=== PATIENT | male | born 1950 | race Caucasian/White ===

== ENCOUNTER → 2016-12-07 | Outpatient (CLI) | payer MEDICARE ==
[~2016-12-07] MED LIST: AMARYL4 MG PO; ATENOLOL25 MG PO; ISORDIL PO; MELATONIN3 M1 PO; METFORMIN750 M1 PO; MICARDIS HCT 121 TA2 PO; NIASPAN500 MG PO; OMEPRAZOLE D/R20 MG PO; ZETIA10 MG PO; [UNRECOGNIZED DRUG - OTHER] PO
== END | disposition home or self-care (01) ==
LOC: US 09:11
DX: E04.1 Nontoxic single thyroid nodule (principal); Z80.8 Family history of malignant neoplasm of other organs or systems

== ENCOUNTER → 2017-03-17 | Outpatient (CLI) | payer MEDICARE ==
[2017-03-17 11:43] LABS: BUN 17 mg/dl (7-24); CHLORIDE 103 mmol/L (98-107); CHOLESTEROL 159 mg/dL (<200); CREATININE 1.32 mg/dL (0.70-1.30); POTASSIUM 3.8 mmol/L (3.5-5.1); SODIUM 138 mmol/L (136-145); TRIGLYCERIDES 105 mg/dl (<150); VLDL CHOLESTEROL 21 mg/dL (6-40)
[2017-03-17 11:51] LABS: CPK 54 U/L (39-308); FREE T4 1.24 ng/dl (0.76-1.46); HDL CHOLESTEROL 57 mg/dl (40-60); LDL CHOLESTEROL 81 mg/dL (9-159); THYROID STIM HORMONE (HS) 0.127 uIU/ml (0.358-4.75)
== END | disposition home or self-care (01) ==
LOC: LAB 10:57
PROVIDERS: Family Medicine
DX: E78.5 Hyperlipidemia, unspecified (principal); E04.9 Nontoxic goiter, unspecified; E11.9 Type 2 diabetes mellitus without complications

== ENCOUNTER → 2017-09-09 | Outpatient (CLI) | payer MEDICARE ==
[2017-09-09 12:34] LABS: CREATININE 1.46 mg/dL (0.70-1.30); POTASSIUM 3.7 mmol/L (3.5-5.1); THYROXINE (T4) TOTAL 9.1 ug/dl (4.5-12.1)
[2017-09-09 12:44] LABS: THYROID STIM HORMONE (HS) 0.065 uIU/ml (0.358-4.75)
== END | disposition home or self-care (01) ==
LOC: LAB 11:24
PROVIDERS: Family Medicine
DX: E78.5 Hyperlipidemia, unspecified (principal); E04.1 Nontoxic single thyroid nodule; E11.9 Type 2 diabetes mellitus without complications

== ENCOUNTER → 2018-01-04 | Outpatient (CLI) | payer MEDICARE ==
[2018-01-04 12:23] LABS: FREE T4 1.34 ng/dl (0.76-1.46); THYROID STIM HORMONE (HS) 0.031 uIU/ml (0.358-4.75)
== END | disposition home or self-care (01) ==
LOC: LAB 11:12
PROVIDERS: Otolaryngology Plastic Surgery within the Head & Neck
DX: E04.9 Nontoxic goiter, unspecified (principal)

== ENCOUNTER → 2018-09-12 | Outpatient (CLI) | payer MEDICARE ==
[2018-09-12 12:17] LABS: BUN 19 mg/dl (7-24); CHLORIDE 103 mmol/L (98-107); CHOLESTEROL 133 mg/dL (<200); CREATININE 1.38 mg/dL (0.70-1.30); FREE T4 1.43 ng/dl (0.76-1.46); HDL CHOLESTEROL 54 mg/dl (40-60); LDL CHOLESTEROL 63 mg/dL (9-159); POTASSIUM 4.1 mmol/L (3.5-5.1); SODIUM 140 mmol/L (136-145); TRIGLYCERIDES 81 mg/dl (<150); VLDL CHOLESTEROL 16 mg/dL (6-40)
[2018-09-12 12:27] LABS: THYROID STIM HORMONE (HS) < 0.005 uIU/ml (0.358-4.75)
== END | disposition home or self-care (01) ==
LOC: LAB 09:51
PROVIDERS: Family Medicine
DX: E11.9 Type 2 diabetes mellitus without complications (principal); E04.1 Nontoxic single thyroid nodule; E78.5 Hyperlipidemia, unspecified

== ENCOUNTER → 2018-12-06 | Outpatient (CLI) | payer MEDICARE | END | disposition home or self-care (01) | LOC: US 11-06 07:30 | DX: E04.2 Nontoxic multinodular goiter (principal) ==

== ENCOUNTER → 2019-03-20 | Outpatient (CLI) | payer MEDICARE ==
[~2019-03-20] MED LIST changes: -AMARYL4 MG PO; +ATENOLOL100 M1 PO; -ATENOLOL25 MG PO; +Amaryl2 MG PO; +DICYCLOMINE HCL10 MG PO; +ISOSORBIDE30 MG PO; +METFORMIN HCL500 M2 PO; -METFORMIN750 M1 PO; +NEURONTIN300 MG PO; +NIASPAN1000 MG PO; -NIASPAN500 MG PO; -OMEPRAZOLE D/R20 MG PO; +OMEPRAZOLE40 MG PO
--- NOTE | 2019-03-20 07:10 | NUR ---
INFORMED CONSENT OBTAINED FOR LEXISCAN NUCLEAR STRESS TEST WITH DR. BRADFORD. RESTING EKG ATRIAL FIB WITH A RESTING HR OF 96 WITH BP OF 122/74. NEW ONSET AND DR. BRADFORD INSTRUCTED PATIENT TO START TAKING ASPIRIN 325 MG DAILY. LUNGS CLEAR WITH SPO2 OF 98% ON ROOM AIR. PT COMPLETED A 1:00 LEXISCAN PROTOCOL RECEIVING LEXISCAN 0.4 MG IV OVER 10 SECONDS. HAD A PEAK HR OF 108 WITH BP OF 100/50. HAD C/O HEADACHE AND CHEST DISCOMFORT. HAD NO ST CHANGES. AT 3:00 RECOVERY CHEST DISCOMFORT RELIEVED AND BP 100/50. AT 4:00 RECOVERY HAD C/O BLURRED VISION AND FEELING LIGHTHEADED. PLACED IN RECLINING POSITION AND BP 80/40. DRINKING DIET COLA AND WATER. BP RECHECK 70/50 AND PALE WITH SKIN COOL AND SLIGHTLY DIAPHORETIC. PLACED IN SUPINE POSITION AND BP RECHECK 76/40 AND COLOR IMPROVING WITH LESS BLURRED VISION AND LIGHTHEADEDNESS. KEPT PATIEND IN SUPINE POSITION THROUGHOUT 19:00 RECOVERY AND BP KEPT IMPROVING. LAST RECOVERY HR OF 94 WITH BP OF 94/64. AFTER RECOVERY KEPT PT IN DEPARTMENT IN SEATED POSITION WITH LEGS ELEVATED. DENIES ANY DISCOMFORT. POSITION. IN SUPINE
--- NOTE | 2019-03-20 07:45 | NUR ---
IN SEATED POSITION EATING. DENIES ANY DISCOMFORT. BP 118/80.
--- NOTE | 2019-03-20 07:55 | NUR ---
BP RECHECK 142/84. DENIES ANY DISCOMFORTS. ORDER RECEIVED BY DR. BRADFORD TO HAVE ECHO COMPLETED TODAY.
--- NOTE | 2019-03-20 08:30 | NUR ---
ECHOCARDIOGRAM COMPLETED. OFFICE CALLED AND SCHEDULED OFFICE APPOINTMENT WITH DR. BRADFORD ON 03/27/19. EMPHASIZED TAKING ASPIRIN 325 MG DAILY. PT VERBALIZED UNDERSTANDING. TO NUCLEAR MEDICINE IN STABLE CONDITION FOR SCANNING.
== END | disposition home or self-care (01) ==
LOC: CARD 00:33
DX: I07.1 Rheumatic tricuspid insufficiency (principal); I20.9 Angina pectoris, unspecified; R53.81 Other malaise

== ENCOUNTER → 2019-05-09 | Outpatient (CLI) | payer MEDICARE ==
[2019-05-09 11:18] LABS: BASO # 0.1 10*3/uL (0.0-0.1); BASO % 0.7 % (0.0-1.0); EOS # 0.4 10*3/uL (0.0-0.4); EOS % 3.9 % (1.0-4.0); HEMATOCRIT 44.3 % (42.0-52.0); HEMOGLOBIN 14.4 g/dl (14.0-18.0); LYMPH # 2.9 10*3/uL (1.3-4.4); LYMPH % 27.5 % (27.0-41.0); MEAN CELL VOLUME 84.7 fl (80.0-94.0); MEAN CORPUSCULAR HGB 27.5 pg (27.0-31.0); MEAN CORPUSCULAR HGB CONC 32.5 g/dl (33.0-37.0); MEAN PLATELET VOLUME 10.8 fl (9.6-12.3); MONO # 0.8 10*3/uL (0.1-1.0); MONO % 7.4 % (3.0-9.0); NEUT # 6.4 10*3/uL (2.3-7.9); NEUT % 60.1 % (47.0-73.0); PLATELET COUNT AUTOMATED 263 10*3/uL (130-400); RED BLOOD COUNT 5.23 10*6/uL (4.50-5.90); RED CELL DISTRI WIDTH 14.2 % (0-14.5); WHITE BLOOD COUNT 10.6 10*3/uL (4.8-10.8)
[2019-05-09 11:40] LABS: ALBUMIN 3.8 gm/dl (3.1-4.5); CREATININE 1.63 mg/dL (0.70-1.30); POTASSIUM 3.9 mmol/L (3.5-5.1); TOTAL PROTEIN 7.3 gm/dL (6.4-8.2)
[2019-05-09 11:47] LABS: THYROID STIM HORMONE (HS) 0.012 uIU/ml (0.358-4.75)
[2019-05-09 11:57] LABS: BILIRUBIN NEGATIVE (NEGATIVE); BLOOD NEGATIVE (NEGATIVE); CLARITY CLEAR (CLEAR); COLOR YELLOW (YELLOW); EPITHELIAL CELLS 0-2; GLUCOSE NEGATIVE (NEGATIVE); KETONE NEGATIVE (NEGATIVE); LEUKO ESTERASE NEGATIVE (NEGATIVE); MUCOUS 1+; NITRITE NEGATIVE (NEGATIVE); RBC 0-2 rbc/hpf (0-2); UROBILINOGEN 0.2 E.U./dl (0.2-1.0); WBC 0-2 wbc/hpf (0-5)
[2019-05-10 10:06] LABS: CREATININE,URINE 229.2 mg/dL (Not Estab.)
== END | disposition home or self-care (01) ==
LOC: LAB 10:32
PROVIDERS: Family Medicine
DX: E11.9 Type 2 diabetes mellitus without complications (principal); I10 Essential (primary) hypertension; E05.10 Thyrotoxicosis with toxic single thyroid nodule without thyrotoxic crisis or storm; I25.10 Atherosclerotic heart disease of native coronary artery without angina pectoris

== ENCOUNTER 2019-10-28 14:41 | Emergency (ER) | payer MEDICARE ==
[~2019-10-28] VITALS: Ht 157.4 cm; Wt 90.7 kg
[2019-10-28 15:18] LABS: BASO # 0.1 10*3/uL (0.0-0.1); BASO % 0.7 % (0.0-1.0); EOS # 0.5 10*3/uL (0.0-0.4); EOS % 4.9 % (1.0-4.0); HEMATOCRIT 38.1 % (42.0-52.0); LYMPH # 3.1 10*3/uL (1.3-4.4); LYMPH % 31.8 % (27.0-41.0); MEAN CELL VOLUME 83.2 fl (80.0-94.0); MEAN CORPUSCULAR HGB 27.1 pg (27.0-31.0); MEAN CORPUSCULAR HGB CONC 32.5 g/dl (33.0-37.0); MEAN PLATELET VOLUME 9.6 fl (9.6-12.3); MONO # 1.1 10*3/uL (0.1-1.0); NEUT % 51.4 % (47.0-73.0); PLATELET COUNT AUTOMATED 263 10*3/uL (130-400); RED BLOOD COUNT 4.58 10*6/uL (4.50-5.90); RED CELL DISTRI WIDTH 13.9 % (0-14.5); WHITE BLOOD COUNT 9.7 10*3/uL (4.8-10.8)
[2019-10-28 15:28] LABS: INTERNATIONAL NORM RATIO 1.5 (2.0-3.5)
[2019-10-28 15:34] LABS: ALBUMIN 3.7 gm/dl (3.1-4.5); CREATININE 2.01 mg/dL (0.70-1.30); TOTAL PROTEIN 7.4 gm/dL (6.4-8.2)
[2019-10-28] MEDS ORDERED: KENALOG 0.5% CR15 GM T (15:47)
== END 2019-10-28 15:58 | disposition home or self-care (01) ==
LOC: ED 14:41
PROVIDERS: Physician Assistant
DX: R21 Rash and other nonspecific skin eruption (principal); R79.1 Abnormal coagulation profile; I10 Essential (primary) hypertension; E11.9 Type 2 diabetes mellitus without complications; I25.2 Old myocardial infarction; E78.00 Pure hypercholesterolemia, unspecified; M10.9 Gout, unspecified; Z79.899 Other long term (current) drug therapy

== ENCOUNTER 2020-07-25 12:51 | Emergency (ER) | payer MEDICARE ==
[~2020-07-25] VITALS: Ht 157.4 cm; Wt 93.0 kg
[~2020-07-25 12:51] MED LIST changes: +ASPIRIN81 M1 PO; +ISOSORBIDE DINI30 MG PO; -ISOSORBIDE30 MG PO; +KENALOG 0.5% CR15 GM T; +XARELTO10 MG PO
== END 2020-07-25 13:30 | disposition home or self-care (01) ==
LOC: ED 12:51
DX: S30.1XXA Contusion of abdominal wall, initial encounter (principal); Z79.899 Other long term (current) drug therapy; Z79.84 Long term (current) use of oral hypoglycemic drugs; Z79.82 Long term (current) use of aspirin; Z98.890 Other specified postprocedural states; X58.XXXA Exposure to other specified factors, initial encounter; Y93.89 Activity, other specified; Y92.89 Other specified places as the place of occurrence of the external cause; Y99.8 Other external cause status

== ENCOUNTER → 2020-08-05 | Outpatient (CLI) | payer MEDICARE ==
[2020-08-05 11:53] LABS: BUN 17 mg/dl (7-24); CHLORIDE 99 mmol/L (98-107); CHOLESTEROL 99 mg/dL (<200); CREATININE 1.48 mg/dL (0.70-1.30); POTASSIUM 4.6 mmol/L (3.5-5.1); SODIUM 134 mmol/L (136-145); TRIGLYCERIDES 71 mg/dl (<150); VLDL CHOLESTEROL 14 mg/dL (6-40)
[2020-08-05 12:01] LABS: HDL CHOLESTEROL 51 mg/dl (40-60); LDL CHOLESTEROL 34 mg/dL (9-159)
[2020-08-05 12:02] LABS: THYROID STIM HORMONE (HS) < 0.005 uIU/ml (0.358-4.75)
== END | disposition home or self-care (01) ==
LOC: LAB 10:45
PROVIDERS: ATTEND Family Medicine
DX: E11.9 Type 2 diabetes mellitus without complications (principal); I10 Essential (primary) hypertension; E78.2 Mixed hyperlipidemia

== ENCOUNTER 2020-10-09 12:20 | Inpatient (IN) | payer MEDICARE ==
[~2020-10-09] VITALS: Ht 157.5 cm; Wt 97.1 kg
[~2020-10-09 12:20] MED LIST changes: -ISOSORBIDE DINI30 MG PO; +Imdur SA60 MG PO
[2020-10-09 12:30] VITALS: BP 170/81
[2020-10-09 12:33] LABS: BASO # 0.1 10*3/uL (0.0-0.1); BASO % 0.5 % (0.0-1.0); EOS # 0.2 10*3/uL (0.0-0.4); EOS % 1.7 % (1.0-4.0); HEMATOCRIT 34.6 % (42.0-52.0); LYMPH # 1.7 10*3/uL (1.3-4.4); LYMPH % 14.3 % (27.0-41.0); MEAN CORPUSCULAR HGB 25.6 pg (27.0-31.0); MEAN CORPUSCULAR HGB CONC 31.2 g/dl (33.0-37.0); MEAN PLATELET VOLUME 10.6 fl (9.6-12.3); MONO # 0.8 10*3/uL (0.1-1.0); MONO % 6.7 % (3.0-9.0); NEUT # 9.3 10*3/uL (2.3-7.9); NEUT % 76.4 % (47.0-73.0); PLATELET COUNT AUTOMATED 273 10*3/uL (130-400); RED BLOOD COUNT 4.22 10*6/uL (4.50-5.90); RED CELL DISTRI WIDTH 14.9 % (0-14.5); WHITE BLOOD COUNT 12.2 10*3/uL (4.8-10.8)
[2020-10-09 12:48] LABS: ALBUMIN 3.4 gm/dl (3.1-4.5); ALKALINE PHOSPHATASE 69 U/L (45-117); BUN 19 mg/dl (7-24); CHLORIDE 102 mmol/L (98-107); CREATININE 1.51 mg/dL (0.70-1.30); POTASSIUM 4.2 mmol/L (3.5-5.1); SGOT/AST 16 IU/L (3-35); SGPT/ALT 26 U/L (12-78); SODIUM 133 mmol/L (136-145); TOTAL PROTEIN 6.9 gm/dL (6.4-8.2)
[2020-10-09 12:53] LABS: TROPONIN I < 0.015 ng/ml (<0.045)
[2020-10-09 13:46] VITALS: BP 138/72
[2020-10-09 16:20] VITALS: BP 187/94
[2020-10-09] MEDS ORDERED: PLAVIX75 M1 PO (18:06)
[2020-10-09] MEDS ORDERED: LIPITOR20 MG PO (18:07)
[2020-10-09] MEDS ORDERED: Amaryl2 MG PO (18:07)
[2020-10-09] MEDS ORDERED: PROVENTIL HFA6.7 GM INH (18:10)
[2020-10-09] MEDS ORDERED: ALLERGY RELIEF10 M2 PO (18:11)
[2020-10-09] MEDS ORDERED: NITROSTAT0.4 MG SL (18:11)
[2020-10-09 18:40] VITALS: BP 174/80
[2020-10-09 20:00] VITALS: BP 148/95
[2020-10-10] VITALS: BP 178/92
[2020-10-10 06:35] LABS: BASO # 0.1 10*3/uL (0.0-0.1); BASO % 0.5 % (0.0-1.0); EOS # 0.3 10*3/uL (0.0-0.4); EOS % 2.9 % (1.0-4.0); HEMATOCRIT 34.1 % (42.0-52.0); LYMPH # 1.8 10*3/uL (1.3-4.4); LYMPH % 16.6 % (27.0-41.0); MEAN CELL VOLUME 79.7 fl (80.0-94.0); MEAN CORPUSCULAR HGB 25.2 pg (27.0-31.0); MEAN CORPUSCULAR HGB CONC 31.7 g/dl (33.0-37.0); MEAN PLATELET VOLUME 10.9 fl (9.6-12.3); MONO # 0.8 10*3/uL (0.1-1.0); MONO % 6.9 % (3.0-9.0); NEUT % 72.6 % (47.0-73.0); PLATELET COUNT AUTOMATED 262 10*3/uL (130-400); RED BLOOD COUNT 4.28 10*6/uL (4.50-5.90); RED CELL DISTRI WIDTH 14.9 % (0-14.5)
[2020-10-10 07:03] LABS: ALBUMIN 3.3 gm/dl (3.1-4.5); BUN 19 mg/dl (7-24); CHLORIDE 103 mmol/L (98-107); CREATININE 1.27 mg/dL (0.70-1.30); POTASSIUM 3.7 mmol/L (3.5-5.1); SGOT/AST 15 IU/L (3-35); SGPT/ALT 24 U/L (12-78); SODIUM 135 mmol/L (136-145); TOTAL PROTEIN 6.8 gm/dL (6.4-8.2)
[2020-10-10 07:04] LABS: ALKALINE PHOSPHATASE 69 U/L (45-117)
[2020-10-10 11:45] VITALS: BP 158/70
== END 2020-10-10 13:57 | disposition home or self-care (01) | DRG 605 ==
LOC: ED 12:20 → EDHOLD 15:04 → 5E 15:04 → EDHOLD 15:04 → 5E 17:02
PROVIDERS: Internal Medicine; Student in an Organized Health Care Education/Training Program; ADMIT Internal Medicine; ATTEND Internal Medicine
DX: S20.211A Contusion of right front wall of thorax, initial encounter (principal); E87.1 Hypo-osmolality and hyponatremia; I48.21 Permanent atrial fibrillation; I13.0 Hypertensive heart and chronic kidney disease with heart failure and stage 1 through stage 4 chronic kidney disease, or unspecified chronic kidney disease; I50.32 Chronic diastolic (congestive) heart failure; K58.9 Irritable bowel syndrome, unspecified; E11.22 Type 2 diabetes mellitus with diabetic chronic kidney disease; N18.31 Chronic kidney disease, stage 3a; R07.89 Other chest pain; D64.9 Anemia, unspecified; D72.829 Elevated white blood cell count, unspecified; E78.5 Hyperlipidemia, unspecified; E11.65 Type 2 diabetes mellitus with hyperglycemia; E11.40 Type 2 diabetes mellitus with diabetic neuropathy, unspecified; K21.9 Gastro-esophageal reflux disease without esophagitis; I25.10 Atherosclerotic heart disease of native coronary artery without angina pectoris; I08.1 Rheumatic disorders of both mitral and tricuspid valves; I27.20 Pulmonary hypertension, unspecified; W01.0XXA Fall on same level from slipping, tripping and stumbling without subsequent striking against object, initial encounter; Y93.89 Activity, other specified; Y92.89 Other specified places as the place of occurrence of the external cause; Y99.8 Other external cause status; Z95.5 Presence of coronary angioplasty implant and graft; Z95.1 Presence of aortocoronary bypass graft; Z98.49 Cataract extraction status, unspecified eye; Z87.891 Personal history of nicotine dependence; Z82.49 Family history of ischemic heart disease and other diseases of the circulatory system; Z80.9 Family history of malignant neoplasm, unspecified; Z79.82 Long term (current) use of aspirin; Z79.899 Other long term (current) drug therapy; Z79.84 Long term (current) use of oral hypoglycemic drugs

== ENCOUNTER → 2021-04-28 | Outpatient (CLI) | payer MEDICARE ==
[~2021-04-28] MED LIST changes: +ALLERGY RELIEF10 M2 PO; +LIPITOR20 MG PO; +NITROSTAT0.4 MG SL; +PLAVIX75 M1 PO; +PROVENTIL HFA6.7 GM INH
[2021-04-28 10:26] LABS: BASO # 0.1 10*3/uL (0.0-0.1); BASO % 0.6 % (0.0-1.0); EOS # 0.3 10*3/uL (0.0-0.4); EOS % 2.6 % (1.0-4.0); LYMPH # 2.1 10*3/uL (1.3-4.4); LYMPH % 17.8 % (27.0-41.0); MEAN CORPUSCULAR HGB 23.6 pg (27.0-31.0); MEAN CORPUSCULAR HGB CONC 30.3 g/dl (33.0-37.0); MEAN PLATELET VOLUME 10.4 fl (9.6-12.3); MONO # 1.1 10*3/uL (0.1-1.0); MONO % 9.1 % (3.0-9.0); NEUT # 8.3 10*3/uL (2.3-7.9); NEUT % 69.5 % (47.0-73.0); PLATELET COUNT AUTOMATED 319 10*3/uL (130-400); RED CELL DISTRI WIDTH 17.8 % (0-14.5); WHITE BLOOD COUNT 11.9 10*3/uL (4.8-10.8)
[2021-04-28 10:40] LABS: POTASSIUM 4.2 mmol/L (3.5-5.1)
[2021-04-28 11:04] LABS: ALBUMIN 3.5 gm/dl (3.1-4.5); CREATININE 1.61 mg/dL (0.70-1.30); THYROID STIM HORMONE (HS) 0.056 uIU/ml (0.358-4.75)
== END | disposition home or self-care (01) ==
LOC: LAB 09:49
PROVIDERS: ATTEND Family Medicine
DX: I11.9 Hypertensive heart disease without heart failure (principal); I25.10 Atherosclerotic heart disease of native coronary artery without angina pectoris; R53.83 Other fatigue; E11.9 Type 2 diabetes mellitus without complications

== ENCOUNTER → 2021-05-27 | Outpatient (CLI) | payer MEDICARE ==
[2021-05-27 10:57] LABS: CREATININE 1.52 mg/dL (0.70-1.30)
== END | disposition home or self-care (01) ==
LOC: LAB 10:03
PROVIDERS: ATTEND Family Medicine
DX: I10 Essential (primary) hypertension (principal); E11.9 Type 2 diabetes mellitus without complications

== ENCOUNTER → 2021-09-10 | Outpatient (CLI) | payer MEDICARE ==
[2021-09-10 12:56] LABS: BASO % 0.4 % (0.0-1.0); EOS % 0.1 % (1.0-4.0); HEMATOCRIT 35.9 % (42.0-52.0); LYMPH # 0.9 10*3/uL (1.3-4.4); LYMPH % 11.2 % (27.0-41.0); MEAN CELL VOLUME 77.2 fl (80.0-94.0); MEAN CORPUSCULAR HGB 24.9 pg (27.0-31.0); MEAN CORPUSCULAR HGB CONC 32.3 g/dl (33.0-37.0); MEAN PLATELET VOLUME 10.2 fl (9.6-12.3); MONO # 0.7 10*3/uL (0.1-1.0); MONO % 8.3 % (3.0-9.0); NEUT # 6.7 10*3/uL (2.3-7.9); NEUT % 79.5 % (47.0-73.0); PLATELET COUNT AUTOMATED 260 10*3/uL (130-400); RED BLOOD COUNT 4.65 10*6/uL (4.50-5.90); RED CELL DISTRI WIDTH 17.5 % (0-14.5); WHITE BLOOD COUNT 8.4 10*3/uL (4.8-10.8)
[2021-09-10 13:13] LABS: CREATININE 1.67 mg/dL (0.70-1.30); POTASSIUM 4.1 mmol/L (3.5-5.1)
== END ==
LOC: LAB 12:03
PROVIDERS: ATTEND Family Medicine
DX: E11.9 Type 2 diabetes mellitus without complications (principal); I10 Essential (primary) hypertension; D50.9 Iron deficiency anemia, unspecified; R06.02 Shortness of breath; R05.9 Cough, unspecified

== ENCOUNTER → 2021-11-26 | Outpatient (CLI) | payer MEDICARE ==
[~2021-11-26] MED LIST changes: +ARNUITY ELLIP200 MCG INH; +FERROCITE324 MG PO; +MUCINEX ER600 MG PO; +PREDNISONE10 MG PO; +XARE20MG PO; +ZITHROMAX500 MG PO
== END | disposition home or self-care (01) ==
LOC: RESCLI 00:53
PROVIDERS: ATTEND Student in an Organized Health Care Education/Training Program
DX: J45.909 Unspecified asthma, uncomplicated (principal); I48.91 Unspecified atrial fibrillation; I13.0 Hypertensive heart and chronic kidney disease with heart failure and stage 1 through stage 4 chronic kidney disease, or unspecified chronic kidney disease; E78.5 Hyperlipidemia, unspecified; K21.9 Gastro-esophageal reflux disease without esophagitis; E11.22 Type 2 diabetes mellitus with diabetic chronic kidney disease; D50.9 Iron deficiency anemia, unspecified; I50.32 Chronic diastolic (congestive) heart failure; I25.810 Atherosclerosis of coronary artery bypass graft(s) without angina pectoris; J30.2 Other seasonal allergic rhinitis; G62.9 Polyneuropathy, unspecified; Z79.899 Other long term (current) drug therapy; Z79.01 Long term (current) use of anticoagulants

== ENCOUNTER → 2022-04-21 | Outpatient (CLI) | payer MEDICARE ==
[2022-04-21 12:53] LABS: BASO # 0.1 10*3/uL (0.0-0.1); BASO % 0.6 % (0.0-1.0); EOS # 0.2 10*3/uL (0.0-0.4); EOS % 1.8 % (1.0-4.0); HEMATOCRIT 47.1 % (42.0-52.0); LYMPH # 2.2 10*3/uL (1.3-4.4); LYMPH % 18.1 % (27.0-41.0); MEAN CELL VOLUME 84.9 fl (80.0-94.0); MEAN CORPUSCULAR HGB 27.7 pg (27.0-31.0); MEAN CORPUSCULAR HGB CONC 32.7 g/dl (33.0-37.0); MEAN PLATELET VOLUME 10.2 fl (9.6-12.3); NEUT # 8.5 10*3/uL (2.3-7.9); NEUT % 71.1 % (47.0-73.0); PLATELET COUNT AUTOMATED 298 10*3/uL (130-400); RED BLOOD COUNT 5.55 10*6/uL (4.50-5.90); RED CELL DISTRI WIDTH 13.5 % (0-14.5); WHITE BLOOD COUNT 11.9 10*3/uL (4.8-10.8)
[2022-04-21 13:13] LABS: BUN 19 mg/dl (9-23); CHLORIDE 100 mmol/L (98-107); CHOLESTEROL 102 mg/dL (<200); LDL CHOLESTEROL 49 mg/dL (9-159); POTASSIUM 3.7 mmol/L (3.4-5.1); THYROID STIM HORMONE (HS) 0.255 uIU/ml (0.550-4.780); TRIGLYCERIDES 83 mg/dl (<150)
== END | disposition home or self-care (01) ==
LOC: LAB 12:28
PROVIDERS: ATTEND Family Medicine
DX: I25.10 Atherosclerotic heart disease of native coronary artery without angina pectoris (principal); E78.2 Mixed hyperlipidemia; E11.9 Type 2 diabetes mellitus without complications; I10 Essential (primary) hypertension

== ENCOUNTER → 2022-10-05 | Outpatient (CLI) | payer MEDICARE | LOC: CARD 00:42 | PROVIDERS: ATTEND Internal Medicine Cardiovascular Disease | DX: R07.9 Chest pain, unspecified (principal) ==

== ENCOUNTER → 2022-11-25 | Outpatient (CLI) | payer MEDICARE | END | disposition home or self-care (01) | LOC: RESCLI 00:42 | PROVIDERS: ATTEND Internal Medicine | DX: I13.0 Hypertensive heart and chronic kidney disease with heart failure and stage 1 through stage 4 chronic kidney disease, or unspecified chronic kidney disease (principal); E11.22 Type 2 diabetes mellitus with diabetic chronic kidney disease; N18.32 Chronic kidney disease, stage 3b; I50.32 Chronic diastolic (congestive) heart failure; E78.5 Hyperlipidemia, unspecified; K21.9 Gastro-esophageal reflux disease without esophagitis; D50.9 Iron deficiency anemia, unspecified; I48.91 Unspecified atrial fibrillation; G47.33 Obstructive sleep apnea (adult) (pediatric); I25.810 Atherosclerosis of coronary artery bypass graft(s) without angina pectoris; J45.909 Unspecified asthma, uncomplicated; G62.9 Polyneuropathy, unspecified; Z87.891 Personal history of nicotine dependence; Z98.890 Other specified postprocedural states; Z79.899 Other long term (current) drug therapy ==

== ENCOUNTER → 2022-12-23 | Outpatient (CLI) | payer MEDICARE ==
[2022-12-23 13:47] LABS: ALKALINE PHOSPHATASE 92 U/L (46-116); BUN 17 mg/dl (9-23); CHLORIDE 101 mmol/L (98-107); CHOLESTEROL 101 mg/dL (<200); LDL CHOLESTEROL 43 mg/dL (9-159); POTASSIUM 4.6 mmol/L (3.4-5.1); SGPT/ALT 44 U/L (10-49); TOTAL PROTEIN 7.2 gm/dL (6.0-8.0); TRIGLYCERIDES 75 mg/dl (<150)
== END | disposition home or self-care (01) ==
LOC: LAB 12:50
PROVIDERS: ATTEND Family Medicine
DX: E11.9 Type 2 diabetes mellitus without complications (principal); R60.9 Edema, unspecified

== ENCOUNTER → 2023-04-26 | Outpatient (CLI) | payer MEDICARE ==
[2023-04-26 11:36] LABS: POTASSIUM 4.2 mmol/L (3.4-5.1); TOTAL PROTEIN 7.4 gm/dL (6.0-8.0)
== END | disposition home or self-care (01) ==
LOC: LAB 10:25
PROVIDERS: ATTEND Family Medicine
DX: E11.9 Type 2 diabetes mellitus without complications (principal); E78.2 Mixed hyperlipidemia; I48.91 Unspecified atrial fibrillation; R60.1 Generalized edema

== ENCOUNTER → 2023-06-16 | Outpatient (CLI) | payer MEDICARE | END | disposition home or self-care (01) | LOC: US 08:00 | PROVIDERS: ATTEND Family Medicine | DX: Z13.6 Encounter for screening for cardiovascular disorders (principal) ==

== ENCOUNTER → 2023-08-09 | Outpatient (CLI) | payer MEDICARE | LOC: LAB 08:22 | PROVIDERS: ATTEND Otolaryngology | DX: R22.1 Localized swelling, mass and lump, neck (principal) ==

== ENCOUNTER 2023-08-11 08:04 | Inpatient (IN) | payer MEDICARE ==
[~2023-08-11] VITALS: Ht 154.9 cm; Wt 89.8 kg
[2023-08-11] VITALS (7 sets, daily range): BP systolic 85–122; BP diastolic 51–79
[2023-08-11 08:27] LABS: BASO # 0.1 10*3/uL (0.0-0.1); BASO % 0.5 % (0.0-1.0); EOS # 0.3 10*3/uL (0.0-0.4); EOS % 2.5 % (1.0-4.0); HEMATOCRIT 41.1 % (42.0-52.0); LYMPH # 2.6 10*3/uL (1.3-4.4); LYMPH % 20.2 % (27.0-41.0); MEAN CELL VOLUME 92.2 fl (80.0-94.0); MEAN CORPUSCULAR HGB 29.1 pg (27.0-31.0); MEAN CORPUSCULAR HGB CONC 31.6 g/dl (33.0-37.0); MEAN PLATELET VOLUME 10.6 fl (9.6-12.3); MONO # 0.9 10*3/uL (0.1-1.0); MONO % 6.7 % (3.0-9.0); NEUT # 9.1 10*3/uL (2.3-7.9); NEUT % 69.6 % (47.0-73.0); PLATELET COUNT AUTOMATED 250 10*3/uL (130-400); RED BLOOD COUNT 4.46 10*6/uL (4.50-5.90); RED CELL DISTRI WIDTH 15.1 % (0-14.5)
[2023-08-11] MEDS ORDERED: SODIUM CHLORIDE 0.9% 1,000 ML IV ONE ×2 (08:30→12:55)
[2023-08-11 08:52] LABS: POTASSIUM 4.3 mmol/L (3.4-5.1); TOTAL PROTEIN 6.7 gm/dL (6.0-8.0)
[2023-08-11] MEDS ORDERED: Ondansetron Hydrochloride 4 MG/2 ML VIAL IV PRN (12:20)
[2023-08-11] MEDS ORDERED: BISACODYL 10 MG SUPP R PRN (12:20)
[2023-08-11] MEDS ORDERED: TEMAZEPAM 15 MG CAP PO PRN (12:20)
[2023-08-11] MEDS ORDERED: MORPHINE Sulfate 2 MG/ML SYR IV PRN (12:20)
[2023-08-11] MEDS ORDERED: Acetaminophen/Hydrocodone 5 MG/325 MG TABLET PO PRN (12:20)
[2023-08-11] MEDS ORDERED: BISACODYL 5 MG TAB PO PRN (12:20)
[2023-08-11] MEDS ORDERED: Magnesium Hydroxide 30 ML UDC PO PRN (12:20)
[2023-08-11] MEDS ORDERED: Technetium Tc 99M Tetrofosmi 0.23 MG KIT IJ SCH ×2 (13:05→13:30)
[2023-08-11] MEDS ORDERED: SODIUM CHLORIDE 0.9% 100 ML BAG IV ONE (13:05)
[2023-08-11] MEDS ORDERED: IOHEXOL 350 MG/ML 100 ML VIAL IV ONE (13:05)
[2023-08-11] MEDS ORDERED: DEXTROSE 10 % IN WATER 250 ML IV PRN (13:25)
[2023-08-11] MEDS ORDERED: ALBUTEROL 8 GM INHALER INH PRN (15:55)
[2023-08-11] MEDS ORDERED: NITROGLYCERIN 0.4 MG BOT SL PRN (15:55)
[2023-08-11] MEDS ORDERED: Albuterol Sulfate 2.5 MG/3 ML VIAL NEB PRN (16:00)
[2023-08-11] MEDS ORDERED: INSULIN LISPRO 1 UNIT/0.01 ML SQ SCH (16:30)
[2023-08-11] MEDS ORDERED: RIVAROXABAN 20 MG TAB PO SCH (18:00)
[2023-08-11] MEDS ORDERED: ATORVASTATIN CALCIUM 20 MG TAB PO SCH (18:00)
[2023-08-11] MEDS ORDERED: EZETIMIBE 10 MG TAB PO SCH (18:00)
[2023-08-11] MEDS ORDERED: GABAPENTIN 600 MG TAB PO SCH (22:00)
[2023-08-12] VITALS: BP 148/86
[2023-08-12] MEDS ORDERED: OMEPRAZOLE 20 MG CAP PO SCH (06:00)
[2023-08-12] MEDS ORDERED: Regadenoson 0.4 MG/5 ML SYR IV ONE (06:15)
[2023-08-12 07:08] LABS: BASO # 0.1 10*3/uL (0.0-0.1); BASO % 0.5 % (0.0-1.0); EOS # 0.3 10*3/uL (0.0-0.4); EOS % 2.5 % (1.0-4.0); HEMATOCRIT 37.7 % (42.0-52.0); LYMPH # 1.8 10*3/uL (1.3-4.4); LYMPH % 16.5 % (27.0-41.0); MEAN CELL VOLUME 89.3 fl (80.0-94.0); MEAN CORPUSCULAR HGB 29.1 pg (27.0-31.0); MEAN CORPUSCULAR HGB CONC 32.6 g/dl (33.0-37.0); MEAN PLATELET VOLUME 10.6 fl (9.6-12.3); MONO # 0.7 10*3/uL (0.1-1.0); MONO % 6.4 % (3.0-9.0); NEUT # 7.8 10*3/uL (2.3-7.9); NEUT % 73.6 % (47.0-73.0); PLATELET COUNT AUTOMATED 192 10*3/uL (130-400); RED BLOOD COUNT 4.22 10*6/uL (4.50-5.90); RED CELL DISTRI WIDTH 15.3 % (0-14.5); WHITE BLOOD COUNT 10.6 10*3/uL (4.8-10.8)
[2023-08-12 07:17] LABS: ACT PARTIAL THROMBO TIME 30.2 SECONDS (20.0-32.1)
[2023-08-12 07:47] LABS: ALKALINE PHOSPHATASE 66 U/L (46-116); BUN 21 mg/dl (9-23); CHLORIDE 107 mmol/L (98-107); CHOLESTEROL 86 mg/dL (<200); FREE T4 1.45 ng/dl (0.89-1.76); LDL CHOLESTEROL 40 mg/dL (9-159); POTASSIUM 3.6 mmol/L (3.4-5.1); SGPT/ALT 22 U/L (5-49); TRIGLYCERIDES 76 mg/dl (<150)
[2023-08-12 08:00] VITALS: BP 143/86
[2023-08-12 08:40] LABS: VITAMIN D, 25-HYDROXY 11.4 ng/mL (30-100)
[2023-08-12] MEDS ORDERED: MAGNESIUM SULFATE 50 ML IV ONE (08:50)
[2023-08-12] MEDS ORDERED: HYDROCHLOROTHIAZIDE 12.5 MG CAP PO SCH (10:00)
[2023-08-12] MEDS ORDERED: Clopidogrel Hydrogen Sulfate 75 MG TAB PO SCH (10:00)
[2023-08-12] MEDS ORDERED: FERROUS SULFATE 325 MG TAB PO SCH (10:00)
[2023-08-12] MEDS ORDERED: CYANOCOBALAMIN 500 MCG TAB PO SCH (10:00)
[2023-08-12] MEDS ORDERED: RIVAROXABAN 20 MG TAB PO SCH (10:00)
[2023-08-12] MEDS ORDERED: ISOSORBIDE MONONITRATE 60 MG TAB PO SCH (10:00)
[2023-08-12] MEDS ORDERED: Losartan Potassium 50 MG TAB PO SCH (10:00)
[2023-08-12] MEDS ORDERED: ATENOLOL 50 MG TAB PO SCH (10:00)
[2023-08-12] MEDS ORDERED: TELMISARTAN PO SCH (10:00)
[2023-08-12] MEDS ORDERED: HYDROCHLOROTHIAZID PO SCH (10:00)
[2023-08-12] MEDS ORDERED: Cholecalciferol 5,000 IU CAP (125 MCG) PO SCH (10:00)
[2023-08-12 16:00] VITALS: BP 134/70
[2023-08-12 20:00] VITALS: BP 158/107
[2023-08-12] MEDS ORDERED: LORazepam 0.5 MG TAB PO ONE (20:25)
[2023-08-12 22:10] VITALS: BP 148/104
[2023-08-13] MEDS ORDERED: POVIDONE IODINE 30 GM TUBE T SCH (10:00)
== END 2023-08-12 22:34 | disposition short-term general hospital (02) | DRG 302 ==
LOC: ED 08:04 → 4E 11:02 → EDHOLD 11:02 → 4E 14:14
PROVIDERS: Internal Medicine; Student in an Organized Health Care Education/Training Program; ADMIT Family Medicine; ATTEND Family Medicine
PROC: 4A02XM4 Measurement of Cardiac Total Activity, External Approach (ICD-10-PCS; principal; 2023-08-12)
PROC: 3E073KZ Introduction of Other Diagnostic Substance into Coronary Artery, Percutaneous Approach (ICD-10-PCS; 2023-08-12)
DX: I25.118 Atherosclerotic heart disease of native coronary artery with other forms of angina pectoris (principal); N17.0 Acute kidney failure with tubular necrosis; I48.19 Other persistent atrial fibrillation; I13.0 Hypertensive heart and chronic kidney disease with heart failure and stage 1 through stage 4 chronic kidney disease, or unspecified chronic kidney disease; I50.22 Chronic systolic (congestive) heart failure; E11.22 Type 2 diabetes mellitus with diabetic chronic kidney disease; N18.31 Chronic kidney disease, stage 3a; E11.42 Type 2 diabetes mellitus with diabetic polyneuropathy; G47.33 Obstructive sleep apnea (adult) (pediatric); E11.65 Type 2 diabetes mellitus with hyperglycemia; K58.9 Irritable bowel syndrome, unspecified; D64.9 Anemia, unspecified; I27.20 Pulmonary hypertension, unspecified; Z95.1 Presence of aortocoronary bypass graft; Z95.5 Presence of coronary angioplasty implant and graft; Z87.891 Personal history of nicotine dependence; Z82.49 Family history of ischemic heart disease and other diseases of the circulatory system; Z79.51 Long term (current) use of inhaled steroids; Z79.84 Long term (current) use of oral hypoglycemic drugs; Z79.899 Other long term (current) drug therapy